=== PATIENT | female | born 1970 | race Two or more races ===

== ENCOUNTER 2024-03-29 09:19 | Outpatient (AMB) | payer MEDICAID, SELFPAY ==
--- NOTE | 2024-03-29 09:34 | PD.ORTHCLVIS ---
Vital signs 03/29/24 09:47 Height 1.65 m Height Method Stated Weight 88.507 kg Weight Measurement Method Standing Scale BMI 32.5 BP 158/82 H Blood Pressure Source Automatic Cuff Blood Pressure Location Right Upper Arm Position Sitting Respiration 18 Pulse 87 Pulse Source Monitor Temp 97.8 F Temp Source Temporal Artery Scan Pulse Oximetry (%) 97 Oxygen Delivery Method Room Air Med/Allergies Allergies & Medications Allergies No Known Allergies Allergy (Verified 03/29/24 09:49) Medication Reconciliation ferrous sulfate 325 mg (65 mg iron) tablet (FeroSul) 325 mg PO QDAY 09/11/23 [History Confirmed 03/29/24] ibuprofen 800 mg tablet 800 mg PO Q8H PRN Pain 09/11/23 [History Confirmed 03/29/24] levothyroxine 25 mcg tablet 25 mcg PO QDAY 09/11/23 [History Confirmed 03/29/24] acetaminophen 500 mg tablet (Acetaminophen Extra Strength) 1,000 mg (2 x 500 mg) PO Q6H PRN pain #90 tabs 03/14/24 [Rx Confirmed 03/29/24] aspirin 81 mg tablet,delayed release 81 mg PO BID #60 tabs 03/14/24 [Rx Confirmed 03/29/24] doxycycline hyclate 100 mg tablet 100 mg PO BID #14 tabs 03/14/24 [Rx Confirmed 03/29/24] gabapentin 300 mg capsule 300 mg PO .qhs #30 caps 03/14/24 [Rx Confirmed 03/29/24] oxycodone 5 mg tablet 5 mg PO Q6H PRN pain #28 tabs 03/14/24 [Rx Confirmed 03/29/24] sennosides 8.6 mg-docusate sodium 50 mg tablet (Senna-S) 1 tab-cap PO QDAY #30 tabs 03/14/24 [Rx Confirmed 03/29/24] Subjective Visit Visit for: follow up visit, post op #1 and knee Immunization / Flu Flu Vaccine in the Last 12 Months: No Flu Vaccine Exclusion Criteria: No Exclusion Criteria History of Present Illness Chief complaint: F/U ON 2 WEEK POST OP Patient is doing well and is now 2 weeks status post right total knee replacement. She is doing well and has minimal pain. She reports that this recovery is easier than the last Personal History Occupation: UNEMPLOYED Red flag PMH: none Pain Pain level (0-10): 6 Pain duration: COMES AND GOES Pain location: inside (medial), outside (lateral) and anterior Pain quality: sharp, dull and aching Pain timing: increases with activity Associated signs & symptoms: stiffness Ambulatory data Ambulatory device: walker Treatments Improvement with previous injections: No Improvement with PT: No Improvement with NSAIDS: n/a Review of Systems Review of Systems: All systems negative unless otherwise noted in HPI. Exam Exam Patient is in no acute distress and is cooperative with the examination today. Patient has a normal mood and affect. Breathing is nonlabored. In no respiratory distress. Bilateral extremities were evaluated and demonstrates sensation intact to light touch. Palpable pedal pulses are present. No significant edema is present. Left knee incision is clean dry intact. Range of motion is 0 to 100 Right knee incision is clean dry and intact Assessment and Plan Problem List (1) Bilateral primary osteoarthritis of knee: Status: Acute Plan: Patient is a 53-year-old female status post Bilateral total knee replacement. She is doing well with her right total knee replacement. She is using a walker but the pain is significantly better than the last one. (2) Bilateral knee pain: Status: Acute (3) Status post total left knee replacement: Status: Acute Plan: Patient is 3 months out status post left total knee replacement. She is doing well. She is very happy with her left total knee replacement and is excited to get her right knee replaced Office Procedures GNS Level of Care Nursing/Assessment Patient Status: Established Patient Nursing Assessment/Reassesment: Medication Reconciliation, Update PMH in EMR and Vital Signs Coordination of Care: Complex Care and Chronic Disease 1-5, Education Complex Pt/Fam, Consent,records obtained, informed consent, 1 Ins Authorization, Results/Orders obtained and Staff clarify orders Special Needs: Language special needs Established Patient Charge Established Patient Point Assignment: 110 Established Patient Point Charge: EP Level 3 (80-115) Past Medical History Past Medical History Have you ever been diagnosed with any of the following: Neurological Problems Seizures: No Cardiology Problems Heart Murmur: Yes (since ) Congestive Heart Failure: No Respiratory Problems Chronic Obstructive Pulmonary Disease (COPD): No Smoking: No Smoking Exposure: No Stomache/Intestinal Problems Hepatitis: No Genital/Urinary Problems Renal Disease: No Reproductive Problems Previous Pregnancies: Yes (x5, 4 children) Musculoskeletal Problems Arthritis: Yes Endocrine Problems Diabetes Mellitus Type 1: No Diabetes Mellitus Type 2: No Hypothyroidism: Yes Blood Problems Anemia: Yes Other Problems Hospitalization: No Shingles: No Blood Transfusions: No Blood Transfusion Reaction: No Anesthesia Reactions: No Cancer: No Surgical History Total Knee Replacement: Yes
[2024-03-29 09:47] VITALS: BP 158/82; PULSE 87; RESP 18; TEMP 36.6; O2SAT 97; BMI 32.5
== END 2024-03-29 09:59 | disposition home or self-care (01) ==
LOC: HODSRG 09:19
PROVIDERS: PCP Family Medicine; Referring Provider Family Medicine; Supervising Provider Orthopaedic Surgery Adult Reconstructive Orthopaedic Surgery; Visit Provider Orthopaedic Surgery Adult Reconstructive Orthopaedic Surgery
DX: M17.0 Bilateral primary osteoarthritis of knee (principal); M25.561 Pain in right knee; M25.562 Pain in left knee; Z96.652 Presence of left artificial knee joint
CPT/HCPCS: 99213; G0463

== ENCOUNTER → 2024-04-19 | Outpatient (CLI) | payer MEDICAID, SELFPAY ==
--- NOTE | 2024-04-19 14:26 | XR_ITS ---
Examination: Right knee 4 views TECHNIQUE: AP oblique lateral axial right knee standing 4 views Exam date and time: 2023 1528 hours INDICATIONS: Patient fell 28 days ago with injury to the knee, knee pain. FINDINGS: Moderate osteopenia Total knee arthroplasty. Satisfactory alignment No fracture No patellar dislocation IMPRESSION: Total right knee arthroplasty with satisfactory alignment
== END | disposition home or self-care (01) ==
LOC: CDIM 14:11
PROVIDERS: Referring Provider Orthopaedic Surgery Adult Reconstructive Orthopaedic Surgery; Visit Provider Orthopaedic Surgery Adult Reconstructive Orthopaedic Surgery
DX: S89.91XA Unspecified injury of right lower leg, initial encounter (principal); W19.XXXA Unspecified fall, initial encounter; Z96.651 Presence of right artificial knee joint
CPT/HCPCS: 73564

== ENCOUNTER 2024-05-16 13:30 | Outpatient (RCR) | payer MEDICAID, SELFPAY ==
--- NOTE | 2024-04-22 10:25 | PT.OIERPT ---
PT OP Initial Eval Patient Information Visit Reasons: POST OP RIGHT TKA Medical Diagnosis: Right Knee OA; Right Knee Pain Treatment Dx #1: Right Knee Mobility Deficits Treatment Dx #2: Right Knee Weakness Start of Care: 04/22/24 Date of Onset: 03/14/24 Smoking Status Smoking Status: Never smoker Initial Assessment Subjective: Pt is a 54 y/o female s/p right TKA 03/14/24. Pt mentioned her left knee was replaced in August of this year. Pt still has limitation with walking, standing, chores, self care, cooking, cleaning, balance, stairs, and recreational activities. Objective: Right Knee AROM: -12 deg to 103 deg Right Knee PROM: -8 deg to 108 deg Right Knee MMTs: grossly 3/5 Right Hip MMTs: grossly 3/5 SLS: NT Assessment: Pt demonstrate right knee mobility and strength deficits s/p TKA leading to difficulty with ADLs. Pt will benefit from physical therapy to increase ROM, strength, and work on ambulation. Short Term and [facility] Goals 1) Decrease knee extension lag to -6 deg in 12 wks to have a normal gait pattern 2) Increase knee flexion AROM to 115 deg in 12 wks to be able to perform squatting activities 3) Increase knee MMTs grossly to 4/5 in 12 wks to be able to perform stairs and steps 4) Increase hip MMTs grossly to 4-/5 in 12 wks to be able to walk more than 30 mins 5) Indep with HEP Treatment Plan 1) Manual Therapy 2) Therapeutic Activities 3) Therapeutic Exercises 4) Modalities (ice, heat) 5) Balance Training 6) Gait Training Frequency and Duration: 2 x wk for 12 wks Certification Dates: 04/22/24 to 07/21/24 Procedure Charges OP PT Eval Mod Complex 30 minutes: Yes
--- NOTE | 2024-04-26 15:39 | PT.ODAYNRPT ---
PT Outpatient Daily Note OP Daily Note Outpatient Physical Therapy Treatment Date: 04/26/24 Visit Reasons: POST OP RIGHT TKA Subjective: Pt reports compliance with HEP. Objective: Please see flow sheet for ther ex list. Assessment: Pt tolerated AROM interventions well, focus on improving ROM. Plan: Continue with POc. Length of Time (minutes) of Treatment: 30 Minutes Procedure Charges Therapeutic Exercise 30 minutes: Yes
--- NOTE | 2024-04-28 15:03 | PT.ODAYNRPT ---
PT Outpatient Daily Note OP Daily Note Outpatient Physical Therapy Treatment Date: 04/28/24 Visit Reasons: POST OP RIGHT TKA Subjective: Pt's knee feels better. Pt does not have any concerns. Objective: Right Knee Flexion AROM: 110 deg Assessment: Pt is progressing with knee flexion AROM. Advanced patient to more closed chain exercises with good tolerance Plan: Continue with PT Length of Time (minutes) of Treatment: 30 Minutes Procedure Charges Therapeutic Exercise 30 minutes: Yes
--- NOTE | 2024-05-04 13:41 | PT.ODAYNRPT ---
PT Outpatient Daily Note OP Daily Note Outpatient Physical Therapy Treatment Date: 05/04/24 Visit Reasons: POST OP RIGHT TKA Subjective: Pt reports R knee is doing better, notices ROM is progressing. Objective: Please see flow sheet for ther ex list. Assessment: Pt ROM in knee flexion continues to improve. 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 Plan: Continue with POC. Length of Time (minutes) of Treatment: 30 Minutes Procedure Charges Therapeutic Exercise 30 minutes: Yes
--- NOTE | 2024-05-06 15:29 | PTNOTE_ITS ---
PT Outpatient Daily Note OP Daily Note Outpatient Physical Therapy Treatment Date: 05/06/24 Visit Reasons: POST OP RIGHT TKA Subjective: Pt reports R knee is doing better, notices she is more confident with walking using SPC. Objective: Please see flow sheet for ther ex list. Assessment: Pt ROM of R knee continues to improve. 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 Plan: Continue with POC. Length of Time (minutes) of Treatment: 30 Minutes Procedure Charges Therapeutic Exercise 30 minutes: Yes
--- NOTE | 2024-05-16 14:11 | PT.ODAYNRPT ---
PT Outpatient Daily Note OP Daily Note Outpatient Physical Therapy Treatment Date: 05/16/24 Visit Reasons: POST OP RIGHT TKA Subjective: Pt's knee feels much better. Pt mention she's been able to do light ADLs around the house. Pt has a lot of family support at home to help her. Objective: Right Knee Flexion AROM: 116 deg Assessment: Pt progressing with knee flexion AROM with less pain reported. Progress patient to closed chain exercises. Plan: Continue with PT Length of Time (minutes) of Treatment: 30 Minutes Procedure Charges Therapeutic Exercise 30 minutes: Yes
== END 2024-05-17 23:59 | disposition home or self-care (01) ==
LOC: CPTX 13:30
PROVIDERS: PCP Family Medicine; Referring Provider Orthopaedic Surgery Adult Reconstructive Orthopaedic Surgery; Visit Provider Orthopaedic Surgery Adult Reconstructive Orthopaedic Surgery
DX: M25.561 Pain in right knee (principal); R53.1 Weakness; R26.89 Other abnormalities of gait and mobility; R26.2 Difficulty in walking, not elsewhere classified; Z96.651 Presence of right artificial knee joint
CPT/HCPCS: 97110; 97162

== ENCOUNTER 2024-06-17 11:30 | Outpatient (RCR) | payer MEDICAID, SELFPAY ==
--- NOTE | 2024-05-20 14:31 | PT.ODAYNRPT ---
PT Outpatient Daily Note OP Daily Note Outpatient Physical Therapy Treatment Date: 05/20/24 Visit Reasons: Post op RT Tka Subjective: Pt's knee is better. Pt walking more with less pain. Objective: Please see flow chart for list of ther ex performed Assessment: tolerate exercises with minimal pain Plan: Continue with PT Length of Time (minutes) of Treatment: 30 Minutes Procedure Charges Therapeutic Exercise 30 minutes: Yes
--- NOTE | 2024-05-24 14:35 | PT.ODAYNRPT ---
PT Outpatient Daily Note OP Daily Note Outpatient Physical Therapy Treatment Date: 05/24/24 Visit Reasons: Post op RT Tka Subjective: Pt reports R knee is doing better, has a few days that she is no longer using cane. Pt shared she notices her R LE is a little more sore when not using the cane but overall content with progress. Objective: Please see flow sheet for ther ex list. Assessment: Progression of LE functional strength completed with muscle fatigue but no pain to report. Plan: Continue with POC. Length of Time (minutes) of Treatment: 30 Minutes Procedure Charges Therapeutic Exercise 30 minutes: Yes
--- NOTE | 2024-05-31 15:46 | PT.ODAYNRPT ---
PT Outpatient Daily Note OP Daily Note Outpatient Physical Therapy Treatment Date: 05/31/24 Visit Reasons: Post op RT Tka Subjective: Pt's knee is better. She is able to sleep more on her side now. Objective: Please see flow chart for list of ther ex performed Assessment: slight difficulty with tandem walking due to mild imbalance; cue patient to use hand as needed in PB Plan: Continue with PT Length of Time (minutes) of Treatment: 30 Minutes Procedure Charges Therapeutic Exercise 30 minutes: Yes
--- NOTE | 2024-06-02 09:36 | PT.ODAYNRPT ---
PT Outpatient Daily Note OP Daily Note Outpatient Physical Therapy Treatment Date: 06/02/24 Visit Reasons: Post op RT Tka Subjective: Pt's knee is better. Pt mentioned she is walking longer without AD Objective: Please see flow chart for list of ther ex performed Assessment: progressing with strengthening exercises. slight difficulty with SL heel raise due to gastroc weakness. Able to complete instructed reps Plan: Continue with PT Length of Time (minutes) of Treatment: 30 Minutes Procedure Charges Therapeutic Exercise 30 minutes: Yes
--- NOTE | 2024-06-08 10:58 | PT.ODAYNRPT ---
PT Outpatient Daily Note OP Daily Note Outpatient Physical Therapy Treatment Date: 06/08/24 Visit Reasons: Post op RT Tka Subjective: Pt's knee is better. No new concerns to report Objective: Please see flow chart for list of ther ex performed Assessment: progressing with hip strength. Pt is taking less rest breaks between each exercises. Plan: Continue with PT Length of Time (minutes) of Treatment: 30 Minutes Procedure Charges Therapeutic Exercise 30 minutes: Yes
--- NOTE | 2024-06-10 10:59 | PT.ODAYNRPT ---
PT Outpatient Daily Note OP Daily Note Outpatient Physical Therapy Treatment Date: 06/10/24 Visit Reasons: Post op RT Tka Subjective: Pt's knee feels good. No new concerns to report. Pt feels that she is progressing well and walking with less pain. Objective: Please see flow chart for list of ther ex performed Assessment: progressing with dynamic and hip strengthening exercises with minimal knee pain reported Plan: Continue with PT Length of Time (minutes) of Treatment: 30 Minutes Procedure Charges Therapeutic Exercise 30 minutes: Yes
--- NOTE | 2024-06-17 12:05 | PT.ODAYNRPT ---
PT Outpatient Daily Note OP Daily Note Outpatient Physical Therapy Treatment Date: 06/17/24 Visit Reasons: Post op RT Tka Subjective: Pt's knee is better as well as balance. Objective: Please see flow chart for list of ther ex performed Assessment: progressing with dynamic balance and progressing with closed chain exercises Plan: Continue with PT Length of Time (minutes) of Treatment: 30 Minutes Procedure Charges Therapeutic Exercise 30 minutes: Yes
== END 2024-06-17 23:59 | disposition home or self-care (01) ==
LOC: CPTX 11:30
PROVIDERS: PCP Orthopaedic Surgery Adult Reconstructive Orthopaedic Surgery; Referring Provider Orthopaedic Surgery Adult Reconstructive Orthopaedic Surgery; Visit Provider Orthopaedic Surgery Adult Reconstructive Orthopaedic Surgery
DX: M25.561 Pain in right knee (principal); R53.1 Weakness; R26.2 Difficulty in walking, not elsewhere classified; R26.89 Other abnormalities of gait and mobility; Z96.651 Presence of right artificial knee joint
CPT/HCPCS: 97110

== ENCOUNTER 2024-06-28 10:13 | Outpatient (AMB) | payer MEDICAID, SELFPAY ==
[2024-06-28 10:39] VITALS: BP 156/79; PULSE 79; RESP 18; TEMP 36.6; O2SAT 96; BMI 33.6
--- NOTE | 2024-06-28 10:39 | PD.ORTHCLVIS ---
Vital signs 06/28/24 10:39 Height 1.65 m Height Method Stated Weight 91.626 kg Weight Measurement Method Standing Scale BMI 33.6 BP 156/79 H Blood Pressure Source Automatic Cuff Blood Pressure Location Right Upper Arm Position Sitting Respiration 18 Pulse 79 Pulse Source Monitor Temp 97.9 F Temp Source Temporal Artery Scan Pulse Oximetry (%) 96 Oxygen Delivery Method Room Air Med/Allergies Allergies & Medications Allergies No Known Allergies Allergy (Verified 03/29/24 09:49) Exam Exam Patient is in no acute distress and is cooperative with the examination today. Patient has a normal mood and affect. Breathing is nonlabored. In no respiratory distress. Bilateral extremities were evaluated and demonstrates sensation intact to light touch. Palpable pedal pulses are present. No significant edema is present. Left knee incision is clean dry intact. Range of motion is 0 to 100 Right knee incision is clean dry and intact. Range of motion is 0 to 105 degrees Assessment and Plan Problem List (1) Bilateral primary osteoarthritis of knee: Status: Acute Plan: Patient is a 53-year-old female status post Bilateral total knee replacement. She is doing well with her right total knee replacement. She is doing well with s/p R TKA. She should continue with PT. (2) Bilateral knee pain: Status: Acute (3) Status post total left knee replacement: Status: Acute Office Procedures GNS Level of Care Nursing/Assessment Patient Status: Established Patient Nursing Assessment/Reassesment: Medication Reconciliation, Update PMH in EMR and Vital Signs Coordination of Care: Complex Care and Chronic Disease 1-5, Education Complex Pt/Fam, Consent,records obtained, informed consent, Results/Orders obtained and Staff clarify orders Special Needs: Language special needs Established Patient Charge Established Patient Point Assignment: 95 Established Patient Point Charge: EP Level 3 (80-115) MA Intake Visit Data Collection New Patient or Established: Established Patient (seen at [facility] within 3 years) Reason for Visit:: 6 week follow up Seen by Clinical Staff ONLY (RN/MA): No Verbal consent obtained for Telemed visit?: No 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: 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 PCP or OBGYN visit in last 3 months: Yes Hx Now: No Do You Feel Safe at Home: Yes Authorities Contacted: N/A Questionairres Past Medical History Past Medical History Have you ever been diagnosed with any of the following: Neurological Problems Seizures: No Cardiology Problems Heart Murmur: Yes (since ) Congestive Heart Failure: No Respiratory Problems Chronic Obstructive Pulmonary Disease (COPD): No Smoking: No Smoking Exposure: No Stomache/Intestinal Problems Hepatitis: No Genital/Urinary Problems Renal Disease: No Reproductive Problems Previous Pregnancies: Yes (x5, 4 children) Musculoskeletal Problems Arthritis: Yes Endocrine Problems Diabetes Mellitus Type 1: No Diabetes Mellitus Type 2: No Hypothyroidism: Yes Blood Problems Anemia: Yes Other Problems Hospitalization: No Shingles: No Blood Transfusions: No Blood Transfusion Reaction: No Anesthesia Reactions: No Cancer: No Surgical History Total Knee Replacement: Yes Subjective Visit Visit for: follow up visit and knee Immunization / Flu Flu Vaccine in the Last 12 Months: Yes Flu Vaccine Exclusion Criteria: Already Received History of Present Illness Chief complaint: 6 WEEK FOLLOW UP Patient is doing well status post staged bilateral total knee replacement. Her last knee replacement was 3 months ago. She is doing well Personal History Occupation: UNEMPLOYED Red flag PMH: BMI BMI Counceling provided: Yes Pain Pain level (0-10): 0 Ambulatory data Ambulatory device: none Treatments Improvement with previous injections: No Improvement with PT: Yes Improvement with NSAIDS: no Review of Systems Review of Systems: All systems negative unless otherwise noted in HPI.
== END 2024-06-28 10:48 | disposition home or self-care (01) ==
LOC: HODSRG 10:13
PROVIDERS: PCP Family Medicine; Referring Provider Family Medicine; Supervising Provider Orthopaedic Surgery Adult Reconstructive Orthopaedic Surgery; Visit Provider Orthopaedic Surgery Adult Reconstructive Orthopaedic Surgery
DX: M17.0 Bilateral primary osteoarthritis of knee (principal); Z96.653 Presence of artificial knee joint, bilateral; M25.562 Pain in left knee; M25.561 Pain in right knee
CPT/HCPCS: 99213; G0463

== ENCOUNTER 2024-07-14 11:30 | Outpatient (RCR) | payer MEDICAID, SELFPAY ==
--- NOTE | 2024-06-22 11:42 | PT.ODAYNRPT ---
PT Outpatient Daily Note OP Daily Note Outpatient Physical Therapy Treatment Date: 06/22/24 Visit Reasons: Post op RT TKA Subjective: Pt's knee is good. No new concerns to report. Objective: Please see flow chart for list of ther ex performed Assessment: progressing with balance exercises with less cues to [place]. Plan: Continue with PT Length of Time (minutes) of Treatment: 30 Minutes Procedure Charges Therapeutic Exercise 30 minutes: Yes
--- NOTE | 2024-06-24 11:57 | PT.ODAYNRPT ---
PT Outpatient Daily Note OP Daily Note Outpatient Physical Therapy Treatment Date: 06/24/24 Visit Reasons: Post op RT TKA Subjective: Pt's knee is feeling better. Pt does not have any concerns to report. Objective: Please see flow chart for list of ther ex performed Assessment: progressing with dynamic balance and overall quad strength. Pt able to progress to normal air squat up to 65 deg of flexion Plan: Continue with PT Length of Time (minutes) of Treatment: 30 Minutes Procedure Charges Therapeutic Exercise 30 minutes: Yes
--- NOTE | 2024-06-29 13:36 | PT.ODAYNRPT ---
PT Outpatient Daily Note OP Daily Note Outpatient Physical Therapy Treatment Date: 06/29/24 Visit Reasons: Post op RT TKA Subjective: Pt reports R knee is doing better, has been going out for walks a few times a week. Pt has been more aware of correcting her gait. Pt had follow up with surgeon, surgeon content with progress but would like for pt to continue with PT. Pt shared with surgeon that she has had 2 epiosodes where her knee becki, surgoen recommend she continue with PT. Objective: Please see flow sheet for ther ex list. Assessment: Focus on restoring strength. Pt ambulating with normal gait, demonstrates increase load during stance phase on R LE. Plan: Continue with pOC. Length of Time (minutes) of Treatment: 30 Minutes Procedure Charges Therapeutic Exercise 30 minutes: Yes
--- NOTE | 2024-07-01 11:58 | PT.ODAYNRPT ---
PT Outpatient Daily Note OP Daily Note Outpatient Physical Therapy Treatment Date: 07/01/24 Visit Reasons: Post op RT TKA Subjective: Pt recently seen surgeon and happy with her progress so far. Pt also notice she can perform step up and lateral step up exercises with less pressure in her knee. Objective: Please see flow chart for list of ther ex performed Assessment: able to perform step up and lateral step up with less hand use. Plan: Continue with PT Length of Time (minutes) of Treatment: 30 Minutes Procedure Charges Therapeutic Exercise 30 minutes: Yes
--- NOTE | 2024-07-12 12:54 | PT.ODAYNRPT ---
PT Outpatient Daily Note OP Daily Note Outpatient Physical Therapy Treatment Date: 07/12/24 Visit Reasons: Post op RT TKA Subjective: Pt's knee is much better and also notice improvement with balance Objective: Please see flow chart for list of ther ex performed Assessment: progressing with blance exercises with improved right LE control while performing exercises Plan: Continue with PT Length of Time (minutes) of Treatment: 30 Minutes Procedure Charges Therapeutic Exercise 30 minutes: Yes
--- NOTE | 2024-07-14 12:10 | PT.ODAYNRPT ---
PT Outpatient Daily Note OP Daily Note Outpatient Physical Therapy Treatment Date: 07/14/24 Visit Reasons: Post op RT TKA Subjective: Pt reports R knee is progressing still has occasional pain and swelling. Objective: Please see flow sheet for ther exlist. Assessment: Pt demonstrates increase tolerance for closed chain interventions indicating progress. Plan: Continue with POC. Length of Time (minutes) of Treatment: 30 Minutes Procedure Charges Therapeutic Exercise 30 minutes: Yes
== END 2024-07-15 23:59 | disposition home or self-care (01) ==
LOC: CPTX 11:30
PROVIDERS: PCP Orthopaedic Surgery Adult Reconstructive Orthopaedic Surgery; Referring Provider Orthopaedic Surgery Adult Reconstructive Orthopaedic Surgery; Visit Provider Orthopaedic Surgery Adult Reconstructive Orthopaedic Surgery
DX: M25.561 Pain in right knee (principal); R53.1 Weakness; R26.2 Difficulty in walking, not elsewhere classified; R26.89 Other abnormalities of gait and mobility; Z96.651 Presence of right artificial knee joint
CPT/HCPCS: 97110

== ENCOUNTER 2024-07-21 13:00 | Outpatient (RCR) | payer MEDICAID, SELFPAY ==
--- NOTE | 2024-07-18 14:28 | PT.ODAYNRPT ---
PT Outpatient Daily Note OP Daily Note Outpatient Physical Therapy Treatment Date: 07/18/24 Visit Reasons: Post op Rt tka Subjective: Pt reports noticing more swelling and pain on the back of the knee since she has been back from . Objective: Please see flow sheet for ther ex list. Assessment: Pt instructed on HS stretch to accommodate for tightness of posterior knee, pt tolerated well. Plan: Continue with POC. Length of Time (minutes) of Treatment: 30 Minutes Procedure Charges Therapeutic Exercise 30 minutes: Yes
--- NOTE | 2024-07-21 14:17 | PT.ODS1RPT ---
PT OP Progress/Discharge Note Date of Service: 07/21/24 Progress Note/DC Note Progress Note/Discharge Note: DC Note Patient Information Visit Reasons: Post op Rt tka Medical Diagnosis: Right Knee OA Treatment Dx #1: Right Knee Pain Service Discharge Date: 07/21/24 Status Subjective: Pt's knee is doing much better. Pt notice intermittent swelling around the knee, however, has been able to resume most ADLs with less limitation. At this time Pt feels comfortable being release from care with exercises to continue at home. Objective: Right Knee AROM: -8 deg to 115 deg Right Knee MMTs: grossly 4/5 Right Hip MMTs: grossly 4-/5 Assessment: Pt demonstrate functional right knee mobility and strength allowing her to resume ADLs, ambulate, and perform recreational activities with less limitation. At this time Pt will no longer benefit from physical therapy due to meeting all set goals in therapy. Pt was instructed on HEP last session and educated to continue exercises to maintain overall mobility. Pt performed all exercises safely, thank you for your referrals. Plan: D/C home with HEP and follow up with MD BAUM Procedure Charges Therapeutic Exercise 30 minutes: Yes
== END 2024-08-15 23:59 | disposition home or self-care (01) ==
LOC: CPTX 13:00
PROVIDERS: PCP Orthopaedic Surgery Adult Reconstructive Orthopaedic Surgery; Referring Provider Orthopaedic Surgery Adult Reconstructive Orthopaedic Surgery; Visit Provider Orthopaedic Surgery Adult Reconstructive Orthopaedic Surgery
DX: M25.561 Pain in right knee (principal); R53.1 Weakness; R26.89 Other abnormalities of gait and mobility; R26.2 Difficulty in walking, not elsewhere classified; Z96.651 Presence of right artificial knee joint
CPT/HCPCS: 97110

== ENCOUNTER → 2024-08-01 | Outpatient (CLI) | payer MEDICAID, SELFPAY ==
--- NOTE | 2024-08-01 14:54 | XR_ITS ---
Examination: Bilateral AP knees 2 views Right lateral knee left lateral knee 2 views Bilateral axial knees single view Exam date and time: August 01, 2024 at 1747 hours INDICATIONS: History total knee arthroplasties, patient fell March 2024 with injury to both knees Technique an findings: Bilateral AP knees standing single view, bilateral PA knees standing flexion single view Standing right lateral knee left lateral knee 2 views Bilateral axial knees single view FINDINGS: Moderate osteopenia Bilateral total knee arthroplasties. Satisfactory alignment No fractures No patellar dislocation IMPRESSION: Bilateral total knee arthroplasties with satisfactory alignment
== END | disposition home or self-care (01) ==
PROVIDERS: PCP Family Medicine; Referring Provider Orthopaedic Surgery Adult Reconstructive Orthopaedic Surgery; Visit Provider Orthopaedic Surgery Adult Reconstructive Orthopaedic Surgery
DX: M17.0 Bilateral primary osteoarthritis of knee (principal); Z96.653 Presence of artificial knee joint, bilateral; S89.92XS Unspecified injury of left lower leg, sequela; W19.XXXS Unspecified fall, sequela; S89.91XS Unspecified injury of right lower leg, sequela
CPT/HCPCS: 73564

== ENCOUNTER 2024-10-25 10:38 | Outpatient (AMB) | payer MEDICAID, SELFPAY ==
[2024-10-25 10:49] VITALS: BP 143/85; PULSE 69; RESP 18; TEMP 35.9; O2SAT 96; BMI 35.0
--- NOTE | 2024-10-25 10:49 | ORTHONT_ITS ---
Vital signs 10/25/24 10:49 Height 1.65 m Height Method Stated Weight 95.481 kg Weight Measurement Method Standing Scale BMI 35.0 BP 143/85 H Blood Pressure Source Automatic Cuff Blood Pressure Location Right Upper Arm Position Sitting Respiration 18 Pulse 69 Pulse Source Monitor Temp 96.7 F L Temp Source Temporal Artery Scan Pulse Oximetry (%) 96 Oxygen Delivery Method Room Air Med/Allergies Allergies & Medications Allergies No Known Allergies Allergy (Verified 10/25/24 10:50) Medication Reconciliation ferrous sulfate 325 mg (65 mg iron) tablet (FeroSul) 325 mg PO QDAY 09/11/23 [H istory Confirmed 10/25/24] ibuprofen 800 mg tablet 800 mg PO Q8H PRN Pain 09/11/23 [History Confirmed 10/25/24] levothyroxine 25 mcg tablet 25 mcg PO QDAY 09/11/23 [History Confirmed 10/25/24] aspirin 81 mg tablet,delayed release 81 mg PO BID #60 tabs 03/14/24 [Rx Confirmed 10/25/24] doxycycline hyclate 100 mg tablet 100 mg PO BID #14 tabs 03/14/24 [Rx Confirmed 10/25/24] oxycodone 5 mg tablet 5 mg PO Q6H PRN pain #28 tabs 03/14/24 [Rx Confirmed 10/25/24] sennosides 8.6 mg-docusate sodium 50 mg tablet (Senna-S) 1 tab-cap PO QDAY #30 tabs 03/14/24 [Rx Confirmed 10/25/24] acetaminophen 500 mg tablet (Acetaminophen Extra Strength) 1,000 mg (2 x 500 mg) PO Q6H PRN pain #90 tabs 04/26/24 [Rx Confirmed 10/25/24] gabapentin 300 mg capsule 300 mg PO .qhs #30 caps 04/26/24 [Rx Confirmed 10/25/24] Exam Exam Patient is in no acute distress and is cooperative with the examination today. Patient has a normal mood and affect. Breathing is nonlabored. In no respiratory distress. Bilateral extremities were evaluated and demonstrates sensation intact to light touch. Palpable pedal pulses are present. No significant edema is present. Left knee incision is clean dry intact. Range of motion is 0 to 100 Right knee incision is clean dry and intact. Range of motion is 0 to 105 degrees Xrays demosntrate cementless total knee replacments in good alignment and position Assessment and Plan Problem List (1) Bilateral primary osteoarthritis of knee: Status: Acute Plan: Patient is a 53-year-old female status post Bilateral total knee replacement. She is doing well with her right total knee replacement. She is doing well with s/p R TKA. She should continue with PT. (2) Bilateral knee pain: Status: Acute (3) Status post total left knee replacement: Status: Acute Office Procedures GNS Level of Care Nursing/Assessment Patient Status: Established Patient Nursing Assessment/Reassesment: Medication Reconciliation, Update PMH in EMR and Vital Signs Coordination of Care: Complex Care and Chronic Disease 1-5, Education Complex Pt/Fam, Consent,records obtained, informed consent, Results/Orders obtained and Staff clarify orders Special Needs: Language special needs (OMANI ) Established Patient Charge Established Patient Point Assignment: 95 Established Patient Point Charge: EP Level 3 (80-115) MA Intake Visit Data Collection New Patient or Established: Established Patient (seen at [facility] within 3 years) Reason for Visit:: FU BILAT KNEE Seen by Clinical Staff ONLY (RN/MA): No Consulting Psychiatrist Required: Yes PCP or OBGYN visit in last 3 months: Yes Hx Now: No Do You Feel Safe at Home: Yes Authorities Contacted: N/A Questionairres Past Medical History Past Medical History Have you ever been diagnosed with any of the following: Neurological Problems Seizures: No Cardiology Problems Heart Murmur: Yes (since ) Congestive Heart Failure: No Respiratory Problems Chronic Obstructive Pulmonary Disease (COPD): No Smoking: No Smoking Exposure: No Stomache/Intestinal Problems Hepatitis: No Genital/Urinary Problems Renal Disease: No Reproductive Problems Previous Pregnancies: Yes (x5, 4 children) Musculoskeletal Problems Arthritis: Yes Endocrine Problems Diabetes Mellitus Type 1: No Diabetes Mellitus Type 2: No Hypothyroidism: Yes Blood Problems Anemia: Yes Other Problems Hospitalization: No Shingles: No Blood Transfusions: No Blood Transfusion Reaction: No Anesthesia Reactions: No Cancer: No Surgical History Total Knee Replacement: Yes Subjective Visit Visit for: follow up visit and knee Immunization / Flu Flu Vaccine in the Last 12 Months: Yes Flu Vaccine Exclusion Criteria: Refused by Patient and Already Received History of Present Illness Chief complaint: 6 WEEK FOLLOW UP Patient is doing well status post staged bilateral total knee replacement. Her last knee replacement was 8 months ago. She is doing well Personal History Occupation: UNEMPLOYED Red flag PMH: BMI and none BMI Counceling provided: Yes Pain Pain level (0-10): 0 Pain duration: 08/2023 Pain location: other (specify) Pain quality: other (specify) (NO PAIN ) Pain timing: night and increases with activity Associated signs & symptoms: weakness and stiffness Ambulatory data Ambulatory device: none Treatments Number of previous injections: 8 Improvement with previous injections: No Number of Physical Therapy sessions: 15 Improvement with PT: Yes Improvement with NSAIDS: no Review of Systems Review of Systems: All systems negative unless otherwise noted in HPI.
== END 2024-10-25 11:02 | disposition home or self-care (01) ==
LOC: HODSRG 10:38
PROVIDERS: PCP Family Medicine; Referring Provider Family Medicine; Supervising Provider Orthopaedic Surgery Adult Reconstructive Orthopaedic Surgery; Visit Provider Orthopaedic Surgery Adult Reconstructive Orthopaedic Surgery
DX: M17.0 Bilateral primary osteoarthritis of knee (principal); M25.561 Pain in right knee; M25.562 Pain in left knee; Z96.652 Presence of left artificial knee joint
CPT/HCPCS: 99213; G0463

== ENCOUNTER → 2025-01-27 | Outpatient (CLI) | payer MEDICAID, SELFPAY ==
[2025-01-27 11:56] LABS: Alanine Aminotransferase 28 U/L (10-49); Albumin, Serum 4.2 gm/dL (3.5-5.0); Alkaline Phosphatase 95 U/L (46-116); Aspartate Amino Transferase 21 U/L (0-34); Bilirubin,Direct 0.2 mg/dL (0.0-0.3); Bilirubin,Total 0.8 mg/dL (0.3-1.2); Cardiac Risk Estimate 2.2 RATIO (3.7-5.6); Cholesterol 145 mg/dL (132-200); HDL Cholesterol 66 mg/dL (40-60); LDL Cholesterol,Calculated 70 mg/dL (0-130); Total Protein 7.0 gm/dL (5.7-8.2); Triglycerides 43 mg/dL (30-150)
[2025-02-03 06:32] LABS: Direct LDL* 83 mg/dL (<100)
== END | disposition home or self-care (01) ==
LOC: COPL 10:25
PROVIDERS: PCP Family Medicine; Referring Provider Internal Medicine Cardiovascular Disease; Visit Provider Internal Medicine Cardiovascular Disease
DX: E78.5 Hyperlipidemia, unspecified (principal); I10 Essential (primary) hypertension
CPT/HCPCS: 36415; 80061; 80076; 83721

== ENCOUNTER 2025-04-07 08:44 | Outpatient (AMB) | payer MEDICAID, SELFPAY ==
--- NOTE | 2025-04-07 09:02 | PD.ORTHCLVIS ---
Vital signs 04/07/25 09:04 Height 1.65 m Height Method Measured Weight 96.785 kg Weight Measurement Method Standing Scale BMI 35.5 BP 149/75 H Blood Pressure Source Automatic Cuff Blood Pressure Location Left Upper Arm Position Sitting Respiration 19 Pulse 78 Pulse Source Monitor Temp 97.7 F Temp Source Temporal Artery Scan Pulse Oximetry (%) 98 Oxygen Delivery Method Room Air Med/Allergies Allergies & Medications Allergies No Known Allergies Allergy (Verified 04/07/25 09:05) Medication Reconciliation ferrous sulfate 325 mg (65 mg iron) tablet (FeroSul) 325 mg PO QDAY 09/11/23 [History Confirmed 04/07/25] ibuprofen 800 mg tablet 800 mg PO Q8H PRN Pain 09/11/23 [History Confirmed 04/07/25] levothyroxine 25 mcg tablet 25 mcg PO QDAY 09/11/23 [History Confirmed 04/07/25] aspirin 81 mg tablet,delayed release 81 mg PO BID #60 tabs 03/14/24 [Rx Confirmed 04/07/25] doxycycline hyclate 100 mg tablet 100 mg PO BID #14 tabs 03/14/24 [Rx Confirmed 04/07/25] oxycodone 5 mg tablet 5 mg PO Q6H PRN pain #28 tabs 03/14/24 [Rx Confirmed 04/07/25] sennosides 8.6 mg-docusate sodium 50 mg tablet (Senna-S) 1 tab-cap PO QDAY #30 tabs 03/14/24 [Rx Confirmed 04/07/25] acetaminophen 500 mg tablet (Acetaminophen Extra Strength) 1,000 mg (2 x 500 mg) PO Q6H PRN pain #90 tabs 04/26/24 [Rx Confirmed 04/07/25] gabapentin 300 mg capsule 300 mg PO .qhs #30 caps 04/26/24 [Rx Confirmed 04/07/25] Exam Exam Patient is in no acute distress and is cooperative with the examination today. Patient has a normal mood and affect. Breathing is nonlabored. In no respiratory distress. Bilateral extremities were evaluated and demonstrates sensation intact to light touch. Palpable pedal pulses are present. No significant edema is present. Left knee incision is clean dry intact. Range of motion is 0 to 100 Right knee incision is clean dry and intact. Range of motion is 0 to 105 degrees Xrays demosntrate cementless total knee replacments in good alignment and position Assessment and Plan Problem List (1) Bilateral primary osteoarthritis of knee: Status: Acute Plan: Patient is a 55-year-old female status post Bilateral total knee replacement. She is doing well with her right total knee replacement. She is doing well with s/p R TKA. She has no pain at all. We will see her in 1-2 years (2) Bilateral knee pain: Status: Acute (3) Status post total left knee replacement: Status: Acute Office Procedures GNS Level of Care Nursing/Assessment Patient Status: Established Patient Nursing Assessment/Reassesment: Medication Reconciliation, Update PMH in EMR and Vital Signs Coordination of Care: Complex Care and Chronic Disease 1-5, Education Complex Pt/Fam, Consent,records obtained, informed consent, Results/Orders obtained and Staff clarify orders Special Needs: Language special needs Established Patient Charge Established Patient Point Assignment: 95 Established Patient Point Charge: EP Level 3 (80-115) MA Intake Visit Data Collection New Patient or Established: Established Patient (seen at [facility] within 3 years) Reason for Visit:: RT TKA F/U Seen by Clinical Staff ONLY (RN/MA): No Regional Retail Sales Manager Required: Yes PCP or OBGYN visit in last 3 months: Yes Hx Now: No Do You Feel Safe at Home: Yes Authorities Contacted: N/A Questionairres Past Medical History Past Medical History Have you ever been diagnosed with any of the following: Neurological Problems Seizures: No Cardiology Problems Heart Murmur: Yes (since ) Congestive Heart Failure: No Respiratory Problems Chronic Obstructive Pulmonary Disease (COPD): No Smoking: No Smoking Exposure: No Stomache/Intestinal Problems Hepatitis: No Genital/Urinary Problems Renal Disease: No Reproductive Problems Previous Pregnancies: Yes (x5, 4 children) Musculoskeletal Problems Arthritis: Yes Endocrine Problems Diabetes Mellitus Type 1: No Diabetes Mellitus Type 2: No Hypothyroidism: Yes Blood Problems Anemia: Yes Other Problems Hospitalization: No Shingles: No Blood Transfusions: No Blood Transfusion Reaction: No Anesthesia Reactions: No Cancer: No Surgical History Total Knee Replacement: Yes Subjective Visit Visit for: follow up visit and knee Immunization / Flu Flu Vaccine in the Last 12 Months: Yes Flu Vaccine Exclusion Criteria: Already Received History of Present Illness Chief complaint: RT TKA F/U Patient is doing well status post staged bilateral total knee replacement. Her last knee replacement was 12 months ago. She is doing well Personal History Occupation: UNEMPLOYED Red flag PMH: BMI BMI Counceling provided: Yes Pain Pain level (0-10): 0 Pain duration: 08/2023 Pain location: other (specify) Pain quality: other (specify) (NO PAIN ) Pain timing: night and increases with activity Associated signs & symptoms: weakness and stiffness Ambulatory data Ambulatory device: none Treatments Number of previous injections: 8 Improvement with previous injections: No Number of Physical Therapy sessions: 15 Improvement with PT: Yes Improvement with NSAIDS: no Review of Systems Review of Systems: All systems negative unless otherwise noted in HPI.
[2025-04-07 09:04] VITALS: BP 149/75; PULSE 78; RESP 19; TEMP 36.5; O2SAT 98; BMI 35.5
--- NOTE | 2025-04-07 09:11 | XR_ITS ---
EXAMINATION: Bilateral knees 2 views Right lateral knee left lateral knee 2 views Bilateral axial knee single view TECHNIQUE: Bilateral AP knees standing single view, bilateral PA knees standing single view flexion Standing right lateral knee left lateral knee 2 views Bilateral axial knee single view total 5 views Date and time: April 07, 2025, 0946 hours INDICATIONS: Bilateral knee pain, right knee surgery 1 year ago left knee surgery 2 years ago FINDINGS: Moderate osteopenia Bilateral total knee arthroplasties. Satisfactory alignment No fractures No definite loosening of the prosthetic components IMPRESSION: Bilateral total knee arthroplasties with satisfactory alignment
== END 2025-04-07 09:20 | disposition home or self-care (01) ==
LOC: HODSRG 08:44
PROVIDERS: PCP Family Medicine; Referring Provider Family Medicine; Supervising Provider Orthopaedic Surgery Adult Reconstructive Orthopaedic Surgery; Visit Provider Orthopaedic Surgery Adult Reconstructive Orthopaedic Surgery
DX: Z47.1 Aftercare following joint replacement surgery (principal); Z96.651 Presence of right artificial knee joint
CPT/HCPCS: 73564; 99213; G0463